=== PATIENT | female | born 1965 | race Caucasian/White ===

== ENCOUNTER 2020-07-31 12:10 | Inpatient (IN) | payer MEDICAID ==
[~2020-07-31] VITALS: Ht 157.5 cm; Wt 114.3 kg
[2020-07-31] MEDS ORDERED: ACETAMINOPHEN 325MG TABLET PO STA (12:37)
[2020-07-31] MEDS ORDERED: PIPERACILLIN/TAZ 3.375G PREMIX 50 ML IV ONE (12:45)
[2020-07-31] MEDS ORDERED: VANCOMYCIN 1 G PREMIX 200 ML IV ONE (12:45)
[2020-07-31] MEDS ORDERED: SODIUM CHLORIDE 0.9% 1000ML BAG (SEPSIS BOLUS) IV ONE (12:45)
[2020-07-31 13:20] LABS: HEMATOCRIT. 39.2 % (36.0-48.0); HEMOGLOBIN. 13.3 g/dL (12.0-16.0); MEAN CORPUSCULAR HEMOGLOBIN 29.8 pg (28.0-32.0); MEAN CORPUSCULAR VOLUME 87.8 fL (81.0-99.0); MEAN PLATELET VOLUME 8.4 fl (7.4-10.4); PLATELET 161 x1000/uL (130-400); RED BLOOD CELL COUNT 4.47 mill/uL (4.2-5.4); RED CELL DISTRIBUTION WIDTH 14.6 % (11.6-14.6)
[2020-07-31 13:28] LABS: CHLORIDE 105 mEq/L (98-107)
[2020-07-31 13:30] LABS: HCG SCREEN NEGATIVE
[2020-07-31 13:31] LABS: D-DIMER 2.14 mg/L FEU (<0.50)
[2020-07-31 13:32] LABS: ETHANOL BLOOD < 10 mg/dL
[2020-07-31 13:46] LABS: PLATELET ESTIMATE NORMAL
[2020-07-31 13:51] LABS: CLARITY URINE CLEAR (CLEAR); COLOR URINE YELLOW (YELLOW); KETONES URINE TRACE (NEGATIVE); LEUKOCYTE ESTERASE URINE NEGATIVE (NEGATIVE); NITRITE URINE NEGATIVE (NEGATIVE); OCCULT BLOOD URINE NEGATIVE (NEGATIVE); PH URINE 7.5 (4.5-8.0); PROTEIN URINE NEGATIVE (NEGATIVE); SPECIFIC GRAVITY URINE 1.014 (1.005-1.030); UROBILINOGEN URINE 0.2 E.U./dL (0.2-1.0)
[2020-07-31 14:13] LABS: *AMPHETAMINES SCREEN URINE NEGATIVE (NEGATIVE)
[2020-07-31 14:14] LABS: *BARBITURATES SCREEN URINE NEGATIVE (NEGATIVE); *BENZODIAZEPINES SCREEN URINE NEGATIVE (NEGATIVE); *COCAINE SCREEN URINE NEGATIVE (NEGATIVE); METHADONE URINE SCREEN NEGATIVE (NEGATIVE); OPIATES URINE SCREEN PRESUMTIVE POSITIVE (NEGATIVE); PHENCYCLIDINE URINE SCREEN NEGATIVE (NEGATIVE)
[2020-07-31 14:15] LABS: CANNABINOID URINE SCREEN NEGATIVE (NEGATIVE)
[2020-07-31] MEDS ORDERED: DIPHENHYDRAMINE 50MG/ML VIAL IV PRN (15:45)
[2020-07-31] MEDS ORDERED: CLONIDINE 0.1MG TABLET PO PRN (15:45)
[2020-07-31] MEDS ORDERED: ENOXAPARIN 40MG/0.4ML SYR SUBCUT SCH (15:45)
[2020-07-31] MEDS ORDERED: ONDANSETRON HCL 4MG/2ML INJ IV PRN (15:45)
[2020-07-31] MEDS ORDERED: CEFTRIAXONE 1 G PREMIX 50 ML IV NR (16:00)
[2020-07-31] MEDS ORDERED: AZITHROMYCIN 500 MG in DEXT 5% WATER 250 ML IV NR (16:15)
[2020-07-31] MEDS: ENOXAPARIN 30MG/0.3ML SYR SUBCUT SCH (19:03)
[2020-07-31] MEDS: SODIUM CHLORIDE 0.9% 1,000 ML IV SCH (19:04)
[2020-07-31] MEDS: MORPHINE SULFATE 2 MG/ML CPJ (NOT FOR IM USE) IV PRN (20:14)
[2020-07-31] MEDS ORDERED: IOHEXOL-350 100 ML BOTTLE ONE (23:15)
[2020-08-01] VITALS (7 sets, daily range): BP systolic 116–150; BP diastolic 50–74
[2020-08-01] MEDS: ACETAMINOPHEN 325MG TABLET PO PRN ×2 (00:20→09:17)
[2020-08-01] MEDS: ENOXAPARIN 30MG/0.3ML SYR SUBCUT SCH ×2 (06:08→17:56)
[2020-08-01 06:43] LABS: BASOPHILS % 0.4 % (0.0-2.0); EOSINOPHILS % 0.1 % (0.0-5.0); HEMOGLOBIN. 11.4 g/dL (12.0-16.0); LYMPHOCYTES % 11.8 % (20.0-50.0); MEAN CORPUSCULAR HEMOGLOBIN 30.4 pg (28.0-32.0); MEAN CORPUSCULAR VOLUME 87.8 fL (81.0-99.0); MEAN PLATELET VOLUME 8.5 fl (7.4-10.4); MONOCYTES % 5.7 % (2.0-8.0); PLATELET 152 x1000/uL (130-400); RED BLOOD CELL COUNT 3.76 mill/uL (4.2-5.4); RED CELL DISTRIBUTION WIDTH 14.9 % (11.6-14.6)
[2020-08-01] MEDS: MORPHINE SULFATE 2 MG/ML CPJ (NOT FOR IM USE) IV PRN (06:48)
[2020-08-01 07:09] LABS: CHLORIDE 112 mEq/L (98-107)
[2020-08-01] MEDS: IPRATROPIUM/ALBUTEROL 0.5-3(2.5)MG/3ML NEB HHN PRN ×3 (07:16→15:07)
[2020-08-01 07:25] LABS: HDL CHOLESTEROL 51 mg/dL (40-59)
[2020-08-01 07:27] LABS: LDL CHOLESTEROL 127 mg/dL (5-100)
[2020-08-01] MEDS: SODIUM CHLORIDE 0.9% 1,000 ML IV SCH (09:14)
[2020-08-01] MEDS ORDERED: POTASSIUM CHLORIDE 20MEQ TABLET SR PO SCH (12:00)
[2020-08-01] MEDS: CETIRIZINE 10MG TABLET PO SCH (12:33)
[2020-08-01] MEDS: HYDROCODONE/ACETAMINOPHEN 5/325MG TABLET PO PRN ×2 (12:38→19:50)
[2020-08-02] VITALS: BP 144/55
[2020-08-02] MEDS: HYDROCODONE/ACETAMINOPHEN 5/325MG TABLET PO PRN ×2 (00:50→09:19)
[2020-08-02 04:00] VITALS: BP 153/69
[2020-08-02 05:37] LABS: BASOPHILS % 0.3 % (0.0-2.0); EOSINOPHILS % 0.3 % (0.0-5.0); HEMATOCRIT. 34.3 % (36.0-48.0); HEMOGLOBIN. 11.4 g/dL (12.0-16.0); LYMPHOCYTES % 10.7 % (20.0-50.0); MEAN CORPUSCULAR HEMOGLOBIN 28.9 pg (28.0-32.0); MEAN CORPUSCULAR VOLUME 86.9 fL (81.0-99.0); MEAN PLATELET VOLUME 8.7 fl (7.4-10.4); MONOCYTES % 4.9 % (2.0-8.0); NEUTROPHILS % 83.8 % (40.0-76.0); PLATELET 168 x1000/uL (130-400); RED BLOOD CELL COUNT 3.94 mill/uL (4.2-5.4); RED CELL DISTRIBUTION WIDTH 14.7 % (11.6-14.6)
[2020-08-02 05:48] LABS: CHLORIDE 109 mEq/L (98-107)
[2020-08-02] MEDS: ENOXAPARIN 30MG/0.3ML SYR SUBCUT SCH ×2 (05:52→17:55)
[2020-08-02 08:00] VITALS: BP 143/91
[2020-08-02] MEDS: CETIRIZINE 10MG TABLET PO SCH (08:50)
[2020-08-02 12:00] VITALS: BP 143/89
[2020-08-02 16:00] VITALS: BP 157/91
[2020-08-02] MEDS ORDERED: BUTALBITAL/ACETAMINOPHEN/CAFFEINE 50/325/40MG TABLET PO PRN (16:15)
[2020-08-02 21:56] VITALS: BP 157/85
[2020-08-03 00:13] VITALS: BP 164/86
[2020-08-03 04:00] VITALS: BP 161/83
[2020-08-03] MEDS: ENOXAPARIN 30MG/0.3ML SYR SUBCUT SCH (06:40)
[2020-08-03 06:45] LABS: CHLORIDE 106 mEq/L (98-107)
[2020-08-03 07:13] LABS: BASOPHILS % 0.4 % (0.0-2.0); EOSINOPHILS % 1.5 % (0.0-5.0); HEMOGLOBIN. 11.8 g/dL (12.0-16.0); LYMPHOCYTES % 23.1 % (20.0-50.0); MEAN CORPUSCULAR HEMOGLOBIN 29.5 pg (28.0-32.0); MEAN CORPUSCULAR VOLUME 87.8 fL (81.0-99.0); MEAN PLATELET VOLUME 8.8 fl (7.4-10.4); MONOCYTES % 8.6 % (2.0-8.0); NEUTROPHILS % 66.4 % (40.0-76.0); PLATELET 184 x1000/uL (130-400); RED BLOOD CELL COUNT 3.99 mill/uL (4.2-5.4); RED CELL DISTRIBUTION WIDTH 14.7 % (11.6-14.6)
[2020-08-03 07:59] VITALS: BP 136/85
[2020-08-03] MEDS: CETIRIZINE 10MG TABLET PO SCH (08:21)
[2020-08-03] MEDS ORDERED: CETI10TA6 PO (11:34)
[2020-08-03] MEDS ORDERED: ATOR10TA69 MT (11:34)
[2020-08-03] MEDS ORDERED: AMLO5TAB88 MT (11:34)
[2020-08-03 12:00] VITALS: BP 136/82
[2020-08-03 12:08] VITALS: BP 136/82
== END 2020-08-03 14:18 | disposition home or self-care (01) | DRG 141 ==
LOC: ER 12:10 → EDBD 12:10 → 7WST 15:08 → EDBEDREQ 15:32 → EDBEDREQSVC 15:32 → EDBEDREQ 19:28 → ENRESERV 20:01 → 5WST 08-01 04:30
PROVIDERS: ADMIT Internal Medicine; ATTEND Internal Medicine
DX: J45.901 Unspecified asthma with (acute) exacerbation (principal); J96.00 Acute respiratory failure, unspecified whether with hypoxia or hypercapnia; E66.01 Morbid (severe) obesity due to excess calories; Z68.42 Body mass index [BMI] 45.0-49.9, adult; E87.6 Hypokalemia; D72.810 Lymphocytopenia; Z20.822 Contact with and (suspected) exposure to COVID-19; J98.11 Atelectasis; Z86.718 Personal history of other venous thrombosis and embolism; R00.0 Tachycardia, unspecified; G43.809 Other migraine, not intractable, without status migrainosus
CPT/HCPCS: 36415; 71045; 71275; 74176; 80048; 80053; 80061; 80305; 80320; 81003; 82728; 83605; 83880; 84145; 84443; 84484; 84703; 85025; 85379; 85384; 86140; 87804; 93005; 93970; 94640; 99291; J0456; J0696; J1650; J2270; J2405; J2543; J3370; J7030; J7060; Q9967; U0003; U0005; G0480